=== PATIENT | female | born 1965 | race Caucasian/White ===

== ENCOUNTER → 2016-12-06 | Outpatient (CLI) | payer BC, OTHER ==
[~2016-12-06] MED LIST: AMBIEN 5 MG TABL5 M1 PO; BUSPIRONE HCL10 MG PO; CLONAZEPAM 1 MG1 M1 PO; CYMBALTA60 MG PO; DICLOFENAC SODI25 MG PO; ESTRADIOL 1 MG T1 M1 PO; FLEXERIL PO; HYDROCODON-ACE1 EAC7 PO; NEURONTIN 300300 M1 PO; NEURONTIN600 MG PO; NORCO 5-325 TA1 EACH PO; NUVIGIL250 MG PO; PERCOCET PO; RELPAX40 MG PO; SINGULAIR 10 MG10 M1 PO; SUMAVEL DO4 MG/0.5 M SQ; SYNTHROID100 MCG PO; TOPAMAX50 MG PO; TRAMADOL 50 MG50 MG PO; VALCYCLOVIR PO; VALCYTE50 MG/1 ML PO; XANAX1 MG PO
== END | disposition home or self-care (01) ==
LOC: RAD 07:17
DX: M47.816 Spondylosis without myelopathy or radiculopathy, lumbar region (principal)